=== PATIENT | female | born 1970 | race Caucasian/White ===

== ENCOUNTER 2022-05-14 08:06 | Observation (INO) ==
[2022-05-14] MEDS ORDERED: Clindamycin 900 MG/50 ML 900 MG/50 ML IV.SOLN IVPB ONE (08:16)
[2022-05-14] MEDS ORDERED: *HR* Propofol 200 MG/20 ML VIAL IVP ONE (08:29)
[2022-05-14] MEDS ORDERED: *HR* Rocuronium Bromide 50 MG/5 ML VIAL ONE (08:29)
[2022-05-14] MEDS ORDERED: *HR* FentaNYL (PF) 100 MCG/2 ML VIAL ONE (08:29)
[2022-05-14] MEDS ORDERED: Lidocaine -MPF 2% 5 ML VIAL ONE ×2 (08:29→10:53)
[2022-05-14] MEDS ORDERED: Ondansetron 4 MG/2 ML VIAL ONE (08:29)
[2022-05-14] MEDS ORDERED: *HR* Midazolam HCl 2 MG/2 ML VIAL ONE (08:29)
[2022-05-14] MEDS ORDERED: Lidocaine HCL 4 ML Topical Solution (Laryng-O-Jet Kit Sterile Pak) TP ONE (08:29)
[2022-05-14] MEDS ORDERED: Ringers Solution, Lactated 1,000 ML IVC SCH ×2 (08:30→12:53)
[2022-05-14] MEDS ORDERED: Acetaminophen IV 1,000 MG/100 ML BAG IVPB ONE (09:11)
[2022-05-14] MEDS ORDERED: Albuterol 2.5 MG/3 ML NEBULIZER IH ONE (09:11)
[2022-05-14] MEDS ORDERED: Famotidine 20 MG TABLET PO ONE (09:11)
[2022-05-14] MEDS ORDERED: Albuterol 2.5 MG/3 ML NEBULIZER IH PRN ×2 (09:12→12:40)
[2022-05-14] MEDS ORDERED: tiZANidine 4 MG TABLET PO SCH (09:12)
[2022-05-14] MEDS ORDERED: *HR* HYDROmorphone PF 0.5 MG/0.5 ML SYRINGE IVP PRN (09:12)
[2022-05-14] MEDS ORDERED: Ondansetron 4 MG/2 ML VIAL IVP PRN ×2 (09:12→12:53)
[2022-05-14] MEDS ORDERED: *HR* FentaNYL (PF) 100 MCG/2 ML VIAL IVP PRN (09:12)
[2022-05-14] MEDS ORDERED: Vancomycin 1,000 MG VIAL ONE (09:27)
[2022-05-14] MEDS ORDERED: *HR* HYDROMORPHONE 2 MG/ML VIAL ONE (10:41)
[2022-05-14] MEDS ORDERED: Acetaminophen 325 MG TABLET PO PRN (12:53)
[2022-05-14] MEDS ORDERED: Naloxone 0.4 MG/ML INJ IVP PRN (12:53)
[2022-05-14] MEDS: *HR* OxyCODONE Immed Rel 5 MG TABLET PO PRN ×2 (12:59→21:11)
[2022-05-14] MEDS: *HR* HYDROcodone/Acet 5/325 mg TABLET PO PRN (15:45)
[2022-05-14] MEDS ORDERED: CeFAZolin 2 GM/120 ML BAG IVPB SCH (16:00)
[2022-05-14] MEDS: Ipratropium/Albuterol Neb 3 ML IH SCH ×2 (17:51→23:31)
[2022-05-14] MEDS: *HR* Metformin 500 MG TABLET PO SCH (18:46)
[2022-05-14] MEDS: Clindamycin 900 MG/50 ML 900 MG/50 ML IV.SOLN IVPB SCH (21:22)
[2022-05-15] MEDS: *HR* OxyCODONE Immed Rel 5 MG TABLET PO PRN ×4 (01:21→20:29)
[2022-05-15] MEDS: Ipratropium/Albuterol Neb 3 ML IH SCH ×4 (04:46→22:24)
[2022-05-15] MEDS: Clindamycin 900 MG/50 ML 900 MG/50 ML IV.SOLN IVPB SCH ×3 (05:42→20:29)
[2022-05-15] MEDS: *HR* Metformin 500 MG TABLET PO SCH ×2 (07:48→15:35)
[2022-05-15] MEDS: cloNIDine HCL 0.1 MG TABLET PO SCH (07:48)
[2022-05-15] MEDS: Furosemide 20 MG TABLET PO SCH (07:48)
[2022-05-15] MEDS: lisinopriL 20 MG TABLET PO SCH (07:49)
[2022-05-15] MEDS: *HR* HYDROcodone/Acet 5/325 mg TABLET PO PRN ×2 (07:51→22:14)
[2022-05-16] MEDS: *HR* OxyCODONE Immed Rel 5 MG TABLET PO PRN ×2 (04:31→20:54)
[2022-05-16] MEDS: Clindamycin 900 MG/50 ML 900 MG/50 ML IV.SOLN IVPB SCH ×3 (04:32→20:53)
[2022-05-16] MEDS: Ipratropium/Albuterol Neb 3 ML IH SCH ×4 (05:00→22:37)
[2022-05-16] MEDS: *HR* Metformin 500 MG TABLET PO SCH ×2 (08:15→17:43)
[2022-05-16] MEDS: Furosemide 20 MG TABLET PO SCH (08:16)
[2022-05-16] MEDS: cloNIDine HCL 0.1 MG TABLET PO SCH (08:16)
[2022-05-16] MEDS: lisinopriL 20 MG TABLET PO SCH (08:16)
[2022-05-16] MEDS: Acetaminophen/Butalbital/CaffeineTABLET PO PRN ×2 (12:16→18:38)
[2022-05-17] MEDS: *HR* OxyCODONE Immed Rel 5 MG TABLET PO PRN ×2 (04:07→22:45)
[2022-05-17] MEDS: Clindamycin 900 MG/50 ML 900 MG/50 ML IV.SOLN IVPB SCH (04:07)
[2022-05-17] MEDS: Ipratropium/Albuterol Neb 3 ML IH SCH ×3 (04:43→15:09)
[2022-05-17] MEDS: cloNIDine HCL 0.1 MG TABLET PO SCH (07:45)
[2022-05-17] MEDS: Furosemide 20 MG TABLET PO SCH (07:45)
[2022-05-17] MEDS: *HR* Metformin 500 MG TABLET PO SCH ×2 (07:45→17:34)
[2022-05-17] MEDS: lisinopriL 20 MG TABLET PO SCH (07:45)
[2022-05-18] MEDS: Ipratropium/Albuterol Neb 3 ML IH SCH ×6 (04:22→22:25)
[2022-05-18] MEDS: *HR* Metformin 500 MG TABLET PO SCH ×2 (08:39→17:27)
[2022-05-18] MEDS: Furosemide 20 MG TABLET PO SCH (08:39)
[2022-05-18] MEDS: cloNIDine HCL 0.1 MG TABLET PO SCH (08:39)
[2022-05-18] MEDS: *HR* OxyCODONE Immed Rel 5 MG TABLET PO PRN ×2 (08:39→20:49)
[2022-05-18] MEDS: lisinopriL 20 MG TABLET PO SCH (08:40)
[2022-05-19] MEDS: lisinopriL 20 MG TABLET PO SCH (08:36)
[2022-05-19] MEDS: Furosemide 20 MG TABLET PO SCH (08:36)
[2022-05-19] MEDS: cloNIDine HCL 0.1 MG TABLET PO SCH (08:36)
[2022-05-19] MEDS: *HR* Metformin 500 MG TABLET PO SCH ×2 (08:36→17:31)
[2022-05-19] MEDS: Acetaminophen/Butalbital/CaffeineTABLET PO PRN (08:39)
[2022-05-19] MEDS: Ipratropium/Albuterol Neb 3 ML IH SCH ×3 (10:34→21:17)
[2022-05-19] MEDS: *HR* OxyCODONE Immed Rel 5 MG TABLET PO PRN (21:27)
[2022-05-20] MEDS: Psyllium 1 PACKET POWD.PACK PO SCH ×2 (00:28→08:21)
[2022-05-20 00:57] LABS: Bacteria,Urine Few per hpf (None-Few); Bilirubin,Urine Negative (Negative); Blood,Urine Moderate (Negative); Budding Yeast,Urine Few per hpf (None Seen); Clarity,Urine Turbid (Clear); Color,Urine Light-Yellow (Yellow); Glucose,Urine (UA) Normal (Normal); Ketones,Urine Negative (Negative); Leukocyte Esterase,Urine Large (Negative); Nitrite,Urine Negative (Negative); PH,Urine 6.5 pH Units (5.0-8.0); Protein,Urine Negative (Neg-Trace); RBC,Urine 30-50 per hpf (0-3); Specific Gravity,Urine 1.009 (1.010-1.025); Squamous Epithelial Cell,Urine Few per hpf (None-Few); Urobilinogen,Urine Normal (Normal); WBC,Urine TNTC per hpf (0-3)
[2022-05-20] MEDS: Ipratropium/Albuterol Neb 3 ML IH SCH ×2 (04:06→09:34)
[2022-05-20] MEDS: Furosemide 20 MG TABLET PO SCH (08:20)
[2022-05-20] MEDS: lisinopriL 20 MG TABLET PO SCH (08:20)
[2022-05-20] MEDS: *HR* Metformin 500 MG TABLET PO SCH (08:21)
[2022-05-20] MEDS: *HR* OxyCODONE Immed Rel 5 MG TABLET PO PRN (08:21)
[2022-05-20] MEDS: cloNIDine HCL 0.1 MG TABLET PO SCH (08:21)
[2022-05-20] MEDS ORDERED: Nitrofurantoin (BID) 100 MG CAPSULE PO SCH (08:57)
[2022-05-20 11:47] VITALS: BP 105/68; PULSE 87; TEMP 98.7; O2SAT 97
== END 2022-05-20 14:13 | disposition home health service (06) ==
LOC: SDCAOSI 08:06 → 4WAOSI 08:06
PROVIDERS: ADMIT Orthopaedic Surgery Orthopaedic Surgery of the Spine; ATTEND Orthopaedic Surgery Orthopaedic Surgery of the Spine